=== PATIENT | male | born 1955 | race Caucasian/White ===

== ENCOUNTER 2023-06-09 13:40 | Inpatient (IN) | payer OTHER ==
[2023-06-09 14:20] VITALS: BMI 16.7
[2023-06-09] MEDS ORDERED: ONDANSETRON *ODT* 4 MG TABLET ONE (15:20)
[2023-06-09] MEDS ORDERED: ACETAMINOPHEN 325 MG TABLET (FP) PO PRN (15:33)
[2023-06-09] MEDS ORDERED: IBUPROFEN 400 MG TABLET (FP) PO PRN (15:33)
[2023-06-09] MEDS ORDERED: LOPERAMIDE HCL 2 MG CAPSULE PO PRN (15:33)
[2023-06-09] MEDS ORDERED: DICYCLOMINE HCL 10 MG CAPSULE PO PRN (15:33)
[2023-06-09] MEDS ORDERED: IBUPROFEN 600 MG TABLET (FP) PO PRN (15:33)
[2023-06-09] MEDS ORDERED: BISMUTH SUBSALICYLATE 262 MG/15 ML BTL PO PRN (15:33)
[2023-06-09] MEDS ORDERED: MAG HYDROX/AL HYDROX/SIMETH 30 ML UNIT-DOSE CUP PO PRN (15:33)
[2023-06-09] MEDS ORDERED: BENZOCAINE/MENTHOL (CHLORASEPTIC ) LOZENGE MM PRN (15:33)
[2023-06-09] MEDS ORDERED: guaiFENesin 600 MG TABLET.ER (FP) PO PRN (15:33)
[2023-06-09] MEDS ORDERED: MAGNESIUM HYDROX 2400MG/30ML ORAL SUSPENSION 30 ML CUP PO PRN (15:33)
[2023-06-09] MEDS ORDERED: POLYETHYLENE GLYCOL (HEALTHYLAX) 3350 17 GM PACKET PO PRN (15:33)
[2023-06-09] MEDS ORDERED: NALOXONE HCL 0.4 MG/ML VIAL IM PRN (15:33)
[2023-06-09] MEDS ORDERED: NALOXONE HCL (KLOXXADO) 8 MG SPRAY NS PRN (15:33)
[2023-06-09] MEDS ORDERED: BENZONATATE 200 MG CAPSULE PO PRN (15:33)
[2023-06-09] MEDS ORDERED: LORazepam 1 MG TABLET PO PRN (15:33)
[2023-06-09] MEDS ORDERED: LISINOPRIL 5 MG TABLET PO ONE (17:20)
[2023-06-09] MEDS ORDERED: LORazepam 2 MG TABLET ONE (17:24)
[2023-06-09] MEDS: LORazepam 2 MG TABLET PO SCH ×2 (17:30→22:26)
[2023-06-09] MEDS: hydrOXYzine PAMOATE 25 MG CAPSULE (FP) PO PRN (18:05)
[2023-06-09] MEDS: PRENATAL VITAMINS W/ FOLIC ACID TABLET (FP) PO SCH (18:59)
[2023-06-09] MEDS: NICOTINE 14 MG/24 HOURS TOPICAL PATCH TD SCH (18:59)
[2023-06-09] MEDS: THIAMINE HCL 100 MG TABLET (FP) PO SCH (22:26)
[2023-06-09] MEDS: MELATONIN 5 MG TABLETS PO SCH (22:26)
[2023-06-09] MEDS ORDERED: cloNIDine HCL 0.1 MG TABLET PO ONE (22:52)
[2023-06-09] MEDS ORDERED: LISINOPRIL 10 MG TABLET PO ONE (23:30)
[2023-06-10] MEDS: LORazepam 2 MG TABLET PO SCH ×4 (06:00→22:45)
[2023-06-10] MEDS: NICOTINE 14 MG/24 HOURS TOPICAL PATCH TD SCH (09:58)
[2023-06-10] MEDS: PRENATAL VITAMINS W/ FOLIC ACID TABLET (FP) PO SCH (09:58)
[2023-06-10] MEDS: hydrOXYzine PAMOATE 25 MG CAPSULE (FP) PO PRN (09:58)
[2023-06-10 11:01] LABS: POTASSIUM 3.9 mmol/L (3.5-5.1)
[2023-06-10 11:06] LABS: ALBUMIN 2.8 g/dl (3.4-5.0); CALCIUM 8.2 mg/dL (8.5-10.1)
[2023-06-10 11:07] LABS: BLOOD UREA NITROGEN 18.7 mg/dL (7-18)
[2023-06-10 11:10] LABS: CREATININE 1.1 mg/dL (0.55-1.3)
[2023-06-10 11:11] LABS: BILIRUBIN,TOTAL 0.7 mg/dL (0.2-1); TOT PROT 5.4 g/dl (6.4-8.2)
[2023-06-10 11:54] LABS: HEMATOCRIT 31.5 % (35.4-49); HEMOGLOBIN 10.8 GM/dL (11.7-16.9); MCH 32.2 pg (25.7-33.7); MCHC 34.2 g/dl (32.0-35.9); MEAN CELL VOLUME 94.2 fl (80-96); MEAN PLT VOLUME 9.6 fl (7.5-11.1); PLATELET COUNT 126 10^3/uL (134-434); RBC 3.35 M/mm3 (4.00-5.60); RDW 14.3 % (11.9-15.9)
[2023-06-10] MEDS: INSULIN SLIDING SCALE (NOVOLOG) 1 VIAL SQ SCH (19:41)
[2023-06-10] MEDS ORDERED: INSULIN (NOVOLOG) ASPART 100 UNITS/ML 10ML VIAL ONE (19:42)
[2023-06-10] MEDS: THIAMINE HCL 100 MG TABLET (FP) PO SCH (22:45)
[2023-06-10] MEDS: MELATONIN 5 MG TABLETS PO SCH (22:48)
[2023-06-11] MEDS: LORazepam 1 MG TABLET PO SCH ×4 (05:14→22:23)
[2023-06-11] MEDS: INSULIN SLIDING SCALE (NOVOLOG) 1 VIAL SQ SCH ×3 (06:03→17:21)
[2023-06-11] MEDS: NICOTINE 14 MG/24 HOURS TOPICAL PATCH TD SCH (10:24)
[2023-06-11] MEDS: PRENATAL VITAMINS W/ FOLIC ACID TABLET (FP) PO SCH (10:24)
[2023-06-11] MEDS: ONDANSETRON *ODT* 4 MG TABLET SL PRN (10:28)
[2023-06-11] MEDS ORDERED: INSULIN (NOVOLOG) ASPART 100 UNITS/ML 10ML VIAL ONE (17:09)
[2023-06-11] MEDS: THIAMINE HCL 100 MG TABLET (FP) PO SCH (22:23)
[2023-06-11] MEDS: MELATONIN 5 MG TABLETS PO SCH (22:24)
[2023-06-12] MEDS ORDERED: LORazepam 0.5 MG TABLET PO PRN
[2023-06-12] MEDS: LORazepam 0.5 MG TABLET PO SCH ×4 (05:39→22:07)
[2023-06-12] MEDS ORDERED: INSULIN (NOVOLOG) ASPART 100 UNITS/ML 10ML VIAL ONE ×3 (07:32→17:04)
[2023-06-12] MEDS: INSULIN SLIDING SCALE (NOVOLOG) 1 VIAL SQ SCH ×4 (07:34→22:02)
[2023-06-12] MEDS: PRENATAL VITAMINS W/ FOLIC ACID TABLET (FP) PO SCH (10:14)
[2023-06-12] MEDS: NICOTINE 14 MG/24 HOURS TOPICAL PATCH TD SCH (10:18)
[2023-06-12] MEDS: amLODIPine BESYLATE 5 MG TABLET (FP) PO SCH (15:51)
[2023-06-12] MEDS: ONDANSETRON *ODT* 4 MG TABLET SL PRN (17:13)
[2023-06-12] MEDS: MELATONIN 5 MG TABLETS PO SCH (22:02)
[2023-06-12] MEDS: THIAMINE HCL 100 MG TABLET (FP) PO SCH (22:07)
[2023-06-13] MEDS ORDERED: LORazepam 0.5 MG TABLET PO ONE (05:00)
[2023-06-13] MEDS: INSULIN SLIDING SCALE (NOVOLOG) 1 VIAL SQ SCH ×2 (06:18→10:45)
[2023-06-13 06:39] VITALS: TEMP 98.4
[2023-06-13] MEDS ORDERED: GLIMEPIRIDE 4 MG TABLET PO SCH (07:00)
[2023-06-13 08:53] VITALS: BP 156/85; PULSE 72; RESP 14
[2023-06-13] MEDS: NICOTINE 14 MG/24 HOURS TOPICAL PATCH TD SCH (09:19)
[2023-06-13] MEDS: PRENATAL VITAMINS W/ FOLIC ACID TABLET (FP) PO SCH (09:19)
[2023-06-13] MEDS: amLODIPine BESYLATE 5 MG TABLET (FP) PO SCH (09:19)
== END 2023-06-13 10:05 | disposition home or self-care (01) | DRG 897 ==
LOC: YASAS 13:40 → Y6N 16:49
PROVIDERS: ADMIT Allergy & Immunology; ATTEND Surgery
PROC: HZ2ZZZZ Detoxification Services for Substance Abuse Treatment (ICD-10-PCS; principal; 2023-06-09)
DX: F10.230 Alcohol dependence with withdrawal, uncomplicated (principal); F14.20 Cocaine dependence, uncomplicated; F17.210 Nicotine dependence, cigarettes, uncomplicated; F32.A Depression, unspecified; E78.5 Hyperlipidemia, unspecified; I73.9 Peripheral vascular disease, unspecified; I25.10 Atherosclerotic heart disease of native coronary artery without angina pectoris; I10 Essential (primary) hypertension; Z95.5 Presence of coronary angioplasty implant and graft
CPT/HCPCS: 36415; 80053; 82962; 83036; 85027; 86780; 87635; 87811; Q0162